=== PATIENT | male | born 1985 | race Caucasian/White ===

== ENCOUNTER 2017-08-16 14:17 | Emergency (ER) | payer MEDICAID ==
[~2017-08-16] VITALS: Ht 182.9 cm; Wt 124.7 kg
[2017-08-16 14:25] VITALS: BP_SYST 128
[2017-08-16 18:35] VITALS: BP_SYST 131
== END 2017-08-16 18:35 | disposition home or self-care (01) ==
LOC: SED 14:17
DX: L03.115 Cellulitis of right lower limb (principal); R10.11 Right upper quadrant pain; R11.2 Nausea with vomiting, unspecified; F17.200 Nicotine dependence, unspecified, uncomplicated
CPT/HCPCS: 99283